=== PATIENT | male | born 1990 | race Two or more races ===

== ENCOUNTER 2025-03-25 21:30 | Emergency (ER) | payer OTHER ==
[~2025-03-25] VITALS: Ht 162.6 cm; Wt 81.8 kg
[2025-03-25 21:35] VITALS: BP 141/84; PULSE 97; RESP 16; TEMP 98.8; O2SAT 98
[2025-03-25] MEDS: TETANUS-DIPTH-ACEL PERTUSSIS 0.5ML SYR Tdap IM ONE (22:47)
[2025-03-25] MEDS: DOXYCYCLINE 100 MG TAB/CAP PO ONE (23:00)
[2025-03-25] MEDS ORDERED: DOXY100C4 PO (23:01)
[2025-03-25] MEDS ORDERED: IBUP-1456 PO (23:01)
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
[2025-03-25] MEDS: IBUPROFEN 800 MG TAB PO ONE (23:05)
== END 2025-03-25 23:08 | disposition home or self-care (01) ==
LOC: ER 21:30
DX: S41.152A Open bite of left upper arm, initial encounter (principal); Z88.0 Allergy status to penicillin; W54.0XXA Bitten by dog, initial encounter; Y93.89 Activity, other specified; Y92.89 Other specified places as the place of occurrence of the external cause; Y99.8 Other external cause status
CPT/HCPCS: 12001; 90471; 90715